=== PATIENT | female | born 1950 | race Caucasian/White ===

== ENCOUNTER 2016-09-08 21:16 | Inpatient (IN) | payer BC ==
--- NOTE | ~2016-09-08 | CN ---
Consultation Report [facility] [address] [place]. [address] NAME: UMANG MORRISON : 54 STATUS : ADM Eloise PAT#: [id number] AGE: 65 ADM/REG DATE : 09/08/16 MR#: [id number] REPORT SERV DATE: 09/09/16 DICTATED BY: MAT ROSS DATE: 09/08/16 REPORT STATUS : Draft TRANSCRIBED BY: MODL DATE: 09/08/16 CONSULTATION DATE OF CONSULTATION: 09/08/2016 EMERGENCY PHYSICIAN: Dr. Duvall. HISTORY OF PRESENT ILLNESS: She is a 65-year-old female, who had a sudden onset of severe pain on the head on the left side around 6 o'clock, which lasted for about two to three minutes and then it went away. Then, she started having dizziness, and she feels little dizzy and off balance. But no weakness was reported, but she had some tingling and numbness in the left hand, and that is not that bad now, and she can still walk and do things, but she still has little off balance and feels like she is drunk a little. She does not have any problem with the speech. No weakness was reported. No blurred vision. No double vision was reported. PAST MEDICAL HISTORY: Includes cancer of the lung, resected on the left upper lobe. She also has back pain, and she is under stress because her only five months ago and she is under lot of stress and she takes fluoxetine. MEDICATION: She is on oxycodone, oxymorphone, progesterone, Flexeril, and fluoxetine. ALLERGIES: CODEINE. SOCIAL HISTORY: She is . Denies any smoking, alcohol abuse, or drug abuse. FAMILY HISTORY: There is a history of coronary artery disease and stroke in the family. PHYSICAL EXAMINATION: VITAL SIGNS: Her blood pressure is 184/97, temperature is 99.4, pulse rate is 87, respiratory rate is 20, and O2 saturation 98. GENERAL: She is awake, alert, oriented in time, space, and person. Her NIH stroke scale was 0/42. She follows one-step commands appropriately. Tongue is in midline. Palate elevates symmetrically and uvula in center. There is no bruit neck. There is soft precordial murmur. HEENT: Extraocular movements are normally seen. Facial sensation is preserved. Facial muscle contraction is normal. Range of movement of neck is full. There is no tenderness on palpation of the paracervical spinal muscles. NEUROLOGIC: Motor examination showed her to have 5/5 strength in all four extremities. Her deep tendon reflexes are 1+ and symmetrical and plantars are downgoing bilaterally. Sensory examination is intact to light touch and pinprick on both upper and lower Consultation Report [facility] [id number] [place]. [address] NAME: UMANG MORRISON : 54 STATUS : ADM Eloise PAT#: [id number] AGE: 65 ADM/REG DATE : 09/08/16 MR#: [id number] REPORT SERV DATE: 09/09/16 DICTATED BY: MAT ROSS DATE: 09/08/16 REPORT STATUS : Draft TRANSCRIBED BY: PARISH DATE: 09/08/16 extremities. Vibration is still preserved in both upper and lower extremities. Coordination examination showed her to have no dysmetria on ceotrj-ex-iqkj or nbys-ta-kxdz on either side. She can walk on her toes and heels and she can do a tandem gait, but little hoppy on tandem gait only. Romberg sign showed her to have no swing. IMAGING: CT scan of the brain did not show any abnormality. LABS: Her WBC count is 9.4, hemoglobin is 14.9, hematocrit is 43.9, platelet count is 336. Her sodium is 141, potassium is 4.1, chloride is 104, bicarb 27, BUN is 17, creatinine is 0.98. Platelet count is 88. Her PT is 14.1. INR is 1.2. Her alkaline phosphatase is 133, ALT is 21, AST is 14. ASSESSMENT: 1. Transient ischemic attack versus small stroke involving the brachium conjunctivum on the left side, possibly even a cerebellar stroke. Time onset is around 6 o'clock and she is out of the window and with a history of lung cancer. She may not be a candidate for t-PA. PLAN: Plan is to get a MRI of the brain, arrange for her to have a carotid ultrasound, echocardiogram of the heart, a Holter monitor, and arrange for Physical Therapy to evaluate her and treat her and if necessary give her balance training and start her on IV fluids 60 mL per hour, normal saline for now, and start her on aspirin a day and Lipitor 40 mg once a day. Ask Neuro hospitalist to see her in the morning. PERRY/PARISH Mat Ross M.D. / [id number] CC: Ankit Melo M.D.
--- NOTE | ~2016-09-08 | DS ---
Discharge Summary [facility] [address] [facility]. [address] NAME: UMANG MORRISON : 54 STATUS : DIS Eloise PAT#: [id number] AGE: 65 ADM/REG DATE : 09/08/16 MR#: [id number] REPORT SERV DATE: 09/11/16 DICTATED BY: SETH SUTHERLAND DATE: 09/10/16 REPORT STATUS : Draft TRANSCRIBED BY: MODGi DATE: 09/10/16 ADMISSION DATE: 09/08/2016 DISCHARGE DATE: 09/10/2016 PROCEDURES DONE: 1. 09/08/2016, CT of the head without contrast, mild to moderate deep white matter chronic microvascular ischemic changes, mild ectasia of the basal artery, greater than 5 mm caliber near the tip of the basilar artery. Probable developmental variant, poorly pneumatized right mastoid air cells. No acute intracranial pathology identified. 2. 09/08/2016, chest x-ray: Small basal atelectasis. Otherwise, no acute cardiopulmonary abnormality identified. 3. 09/10/2015, ultrasound carotid, bilateral category normal. 4. MRA of the head, there is motion artifact distorting the carotid siphon, however, there are intracranial vessels, there was no evidence of the inner proximal vessel cut off or aneurysm. 5. MRA of the neck, tortuosity of internal carotid arteries. There is no significant carotid bifurcation stenosis present. 6. 09/09/2016, MRI of the brain, extensive amount of old deep white matter ischemic changes present in both hemispheres, right side mastoiditis, no acute infarction seen. 7. 09/09/2016, 2D echo: Normal left ventricular size and systolic function. EF of 55%. Mild left ventricular diastolic dysfunction, normal right ventricular size and systolic function. No significant valvular disease. CONSULT: Neurology. REASON FOR ADMISSION: Dizziness and unsteady gait. HISTORY OF HOSPITAL STAY: A 65-year-old, white female with past medical history of cerebrovascular accident; history of lung CA, status post left upper lobectomy; hypertension; not being treated, presenting with dizziness and unsteady gait, unknown duration. The patient was admitted for further evaluation of her dizziness and unsteady gait, Neurology was consulted for further evaluation and treatment. CT of the head initially seen was negative. This was followed up with a MRI of the head. This was also negative. The patient also had MRA of the head and neck which shows no stenosis. There were no identifiable features that would result in the patient's dizziness and unsteady gait. The patient also was presenting with a headache. Neurology started the patient on thiamine which have improved the patient's dizziness. There was also some other tangential complaints that the patient is having. The patient was also complaining of snoring while sleeping as well as back pain. Outpatient sleep study has been ordered as well as MRI of L- spine with followup as an outpatient. Otherwise, the patient's dizziness and unsteady gait might be due to the patient's headache. There was a complaint also of patient having restless leg at night. This was resolved with Requip 0.5 mg p.o. at bedtime. DISPOSITION: The patient is feeling fine. No complaints. Activities tolerated. Discharge Summary [address] [address] NAME: UMANG MORRISON : 54 STATUS : DIS Eloise PAT#: [id number] AGE: 65 ADM/REG DATE : 09/08/16 MR#: [id number] REPORT SERV DATE: 09/11/16 DICTATED BY: SETH SUTHERLAND DATE: 09/10/16 REPORT STATUS : Draft TRANSCRIBED BY: PARISH DATE: 09/10/16 DIET: Cardiac. INSTRUCTIONS UPON DISCHARGE: The patient is to follow up with her primary care within one to two weeks' time. The patient to follow up with Neurology within one to two weeks' time. MEDICATION UPON DISCHARGE: 1. Aspirin 325 mg p.o. daily. 2. Ibuprofen 4 mg p.o. t.i.d. p.r.n. for pain. 3. Estradiol 1 mg p.o. daily. 4. Prozac 60 mg p.o. daily. 5. Requip 0.5 mg p.o. at bedtime. 6. Thiamine 100 mg p.o. daily. 7. Nature-Throid mg p.o. daily. 8. Oxycodone 10 mg p.o. t.i.d. 9. Opana Extended release 5 mg p.o. at bedtime. 10.Flexeril 5 mg p.o. t.i.d. p.r.n. 11.Progesterone 200 mg p.o. daily. 12.Allergy eye drops 2 drops ophthalmic daily p.r.n. 13.Albuterol two puffs p.r.n. DIAGNOSIS UPON DISCHARGE: 1. Dizziness and unsteady gait. 2. Questionable headaches. 3. Headaches. 4. Hypertension. 5. History of lung cancer, status post left upper lobectomy. CLARK/PARISH Seth Sutherland MD / [id number] CC: MD Ankit Beard M.D.
--- NOTE | ~2016-09-08 | HP ---
History And Physical [facility] [address] [facility] [place]. [address] NAME: UMANG MORRISON : 54 STATUS : ADM Eloise PAT#: [id number] AGE: 65 ADM/REG DATE : 09/08/16 MR#: [id number] REPORT SERV DATE: 09/09/16 DICTATED BY: MICHAEL CABA DATE: 09/09/16 REPORT STATUS : Draft TRANSCRIBED BY: MODGi DATE: 09/09/16 DATE OF ADMISSION: 09/08/2016 CHIEF COMPLAINT: Dizziness, unsteady gait, and pain in the left side of her head. HISTORY OF PRESENT ILLNESS: This is a 65-year-old female with a history of CVA in the past, history of lung cancer status post left upper lobectomy, hypertension which she is not being treated, who presents to the emergency room at [facility] with the above-mentioned complaint. History is obtained from the patient, and reviewing data available on the [facility] as well. According to the patient, she had been in her usual state of health until about after lunch today, when she was not doing anything in particular, walking from one room to another in her home when she suddenly experienced severe pain inside her head, mostly on the left side. She says the pain, although she felt it on the left it was inside her. It lasted about 15- 20 seconds and just went away. At that time, she also felt some tingling in her left upper extremity and possibly some weakness. She was fine after it went away and decided to go arrange some things in her home and sat down and was doing something. She noticed that she felt like she was drunk, felt very unsteady, and when she got up to walk she almost felt like she was drunk and could not keep her balance. Her had about five months ago and she is still unhappy about way things happened, but is slowly getting used to the fact and addressing her grief. She did not fall down or pass out. She had no chest pains or any other symptoms. She called a friend of hers and they discussed the symptoms, it was decided to come to the emergency room to be evaluated. In the emergency room, initial workup including CT scan of the brain did not reveal any acute changes. There was evidence of old CVA. Her EKG was unremarkable, but symptoms did continue especially the unsteadiness on her feet, and gait abnormality. The ER physician had called Neurology on-call who actually saw the patient in the ER, reviewed all the tests and decided that this was not an appropriate candidate for thrombolysis and wanted the Hospitalist Service to admit her for further evaluation and treatment. At the time of my evaluation, she had gait abnormality as mentioned above and uncontrolled hypertension. She did not have any other neurological problems at this time. She denied any chest pain, palpitations, or orthopnea. She had no cough, hemoptysis, night sweats, or weight loss. She had no falls or loss of consciousness recently. No history of recent fevers, chills, dysuria. She did not have any nausea, vomiting, diarrhea, diaphoresis. No history of recent hematemesis, hematochezia, or hematuria. No other history of recent travel or exposures. She also says she had not taken her blood pressure medications for some unknown reason for about three to four months now. PAST MEDICAL HISTORY: Significant for hypertension, history of CVA in 2015, although she said she had not actually been to a hospital. She has history of lung cancer, status post left upper lobectomy. SOCIAL HISTORY: She has never smoked, does not drink, or use recreational drugs. She is a History And Physical [address] [place]. [address] NAME: UMANG MORRISON : 54 STATUS : ADM Eloise PAT#: [id number] AGE: 65 ADM/REG DATE : 09/08/16 MR#: [id number] REPORT SERV DATE: 09/09/16 DICTATED BY: MICHAEL CABA DATE: 09/09/16 REPORT STATUS : Draft TRANSCRIBED BY: PARISH DATE: 09/09/16 vegetarian. 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 After her stroke the last time she has had some difficulty with her right arm and is slowly getting back to playing the violin. FAMILY HISTORY: Noncontributory. MEDICATIONS: Her medications at home were reviewed by me in the chart today and reordered by me. REVIEW OF SYSTEMS: As in history of present illness. All other systems were reviewed in detail and are quite unremarkable. PHYSICAL EXAMINATION: GENERAL: This is a pleasant 65-year-old, not in any acute distress. HEENT: Her head is atraumatic and normocephalic. She is alert, awake, oriented to time, place, and person. Her pupils are equal, reacting to light and accommodating. External ocular muscles are intact. Membranes are moist and pink. Sclerae are nonicteric. NECK: Supple with no jugular venous distention, lymphadenopathy, or thyromegaly. LUNGS: Clear to auscultation with no wheezes, rubs, or crackles. HEART: Heart sounds were regular with no murmurs, rubs, or gallops. ABDOMEN: Soft and nontender. Bowel sounds are present. EXTREMITIES: No cyanosis, clubbing, or edema. NEUROLOGIC: Grossly intact. At the time of my exam, she did have some steadiness in gait; otherwise, unremarkable. VITAL SIGNS: Her temperature was 99.4 upon arrival, heart rate 56, respirations 18 a minute, and blood pressure upon arrival was 184/97. At the time of my exam I did a recheck and it was 170/104. Oxygen saturations were 100% on 2 L via nasal cannula. LABORATORY DATA: Reviewed on the [facility] system showed normal CMP with a blood glucose of 88. Her troponin today was 0.02 and CBC was essentially within normal limits. Her prothrombin time was 14.1 with an INR of 1.1 today. Urinalysis was not done today. Films of the CT scan of her brain were reviewed by me on the PACS today and interpreted by me. Per my interpretation, there is no acute intracranial pathology. There are remarkable changes from old CVA. Please see Radiology report for the details. A 12-lead EKG done in the emergency room was also reviewed and interpreted by me. There is normal sinus rhythm at a rate of 72 per minute without any acute changes. IMPRESSION: 1. Dizziness. 2. Gait abnormality. 3. Transient ischemic attack versus cerebrovascular accident with cerebellar signs. 4. Uncontrolled hypertension. History And Physical [address] [address] NAME: UMANG MORRISON : 54 STATUS : ADM Eloise PAT#: [id number] AGE: 65 ADM/REG DATE : 09/08/16 MR#: [id number] REPORT SERV DATE: 09/09/16 DICTATED BY: MICHAEL CABA DATE: 09/09/16 REPORT STATUS : Draft TRANSCRIBED BY: PARISH DATE: 09/09/16 5. History of lung cancer, status post left upper lobectomy. 6. History of cerebrovascular accident in the past. PLAN: We will admit Mrs. Morrison to the Hospitalist Service with telemetry for a 24-hour observation period. We will follow non-tPA stroke orders to get and consult Neuro hospitalist to see her in the morning. The patient was actually seen by neurologist, Dr. Mat Ross in the ER, who had a discussion with me as well. I have also noted his orders in the chart. We will go with aspirin and statins per protocol check her MRI and MRA of her head and echocardiogram as well. We will have Physical Therapy to evaluate her in the morning and offer recommendations and treatments. She will be placed on unfractionated heparin for DVT prophylaxis while here and the proton pump inhibitor for neuro prophylaxis. I have discussed the above plans and the hypertension as well with the patient. Her questions were answered, and she is agreeable to the above recommendations. Hospitalist Service will be following her during her stay here. /PARISH Michael Caba M.D. / [id number] CC: Denis Jackson MD
[2016-09-08 21:54] LABS: BASOPHILS 0.7 %; BASOPHILS ABSOLUTE 0.07 10/3/uL (0.0-0.16); EOSINOPHILS 4.2 %; EOSINOPHILS ABSOLUTE 0.39 10/3/uL (0.0-0.53); ER CBC TAT 0 Hrs 11 Mins; HEMATOCRIT 43.9 % (36.0-48.0); HEMOGLOBIN 14.9 g/dL (12.0-16.0); IMMATURE GRANULOCYTES 0.2 %; IMMATURE GRANULOCYTES ABSOLUTE 0.02 10/3/uL (0.0-0.11); LYMPHOCYTES 30.8 %; LYMPHOCYTES ABSOLUTE 2.88 10/3/uL (0.67-4.30); MANUAL DIFF NO %; MEAN CORPUS HGB CONC 33.9 g/dL (32.0-36.0); MEAN CORPUSCULAR VOLUME 91.5 fL (80-100); MONOCYTES 9.1 %; MONOCYTES ABSOLUTE 0.85 10/3/uL (0.21-1.20); NEUTROPHILS ABSOLUTE 5.14 10/3/uL (2.02-8.40); PLATELET COUNT 336 10/3/uL (150-400); RBC DISTRIBUTION WIDTH 13.1 % (12.0-16.0); WHITE BLOOD CELLS 9.4 10/3/uL (4.5-10.5)
[2016-09-08 21:57] LABS: INTERNATIONAL NORMAL RATI 1.1 UNITS (-); PARTIAL THROMBO TIME 32.9 SEC (22.5-37.2); PROTIME (NOT ORD) 14.1 SEC (12.0-14.5)
[2016-09-08 22:08] LABS: A/G RATIO 1.3 (0.7-1.9); ALBUMIN 4.1 G/DL (3.5-5.0); ALKALINE PHOSPHATASE 133 U/L (45-117); BUN (BLOOD UREA NITROGEN) 17 MG/DL (6-23); CALCIUM, SERUM 8.7 MG/DL (8.5-10.4); CHLORIDE, SERUM 104 MMOL/L (96-112); CO2 (CARBON DIOXIDE) 27 MMOL/L (24-34); CREATININE 0.98 MG/DL (0.55-1.02); GFR AFRICAN AMERICAN 71 ML/MIN (>=60); GFR NON AFRICAN AMERICAN 61 ML/MIN (>=60); GLOBULIN 3.2 G/DL (2.5-4.1); GLUCOSE, SERUM 88 MG/DL (60-99); POTASSIUM, SERUM 4.1 MMOL/L (3.5-5.3); SGOT(AST) 14 U/L (5-40); SGPT(ALT) 21 U/L (5-65); SODIUM, SERUM 141 MMOL/L (135-148); TOTAL PROTEIN 7.3 G/DL (6.0-8.5); TROPONIN I <0.02 NG/ML (<0.05)
[2016-09-08] MEDS ORDERED: PROZAC PO (23:38)
[2016-09-08] MEDS ORDERED: NATURE-THROI16.25 MG PO (23:44)
[2016-09-08] MEDS ORDERED: FLEXERIL5 MG PO (23:45)
[2016-09-08] MEDS ORDERED: PROMETRIUM200 MG PO (23:45)
[2016-09-08] MEDS ORDERED: ESTRACE1 MG PO (23:45)
[2016-09-08] MEDS ORDERED: OXYCOD PO (23:46)
[2016-09-08] MEDS ORDERED: OPANA ER5 MG PO (23:49)
[2016-09-08] MEDS ORDERED: MOTRIN IB200 MG PO (23:57)
[2016-09-08] MEDS ORDERED: [UNRECOGNIZED DRUG - REMARK] OPH (23:59)
[2016-09-09] MEDS ORDERED: PROVHFA INH
[2016-09-09] MEDS ORDERED: MAINTENANCE INHALER INH (00:02)
[2016-09-09 02:09] LABS: FOLATE 32.1 NG/ML (>5.2)
[2016-09-09 08:01] LABS: BASOPHILS 0.6 %; BASOPHILS ABSOLUTE 0.06 10/3/uL (0.0-0.16); EOSINOPHILS 5.3 %; EOSINOPHILS ABSOLUTE 0.54 10/3/uL (0.0-0.53); HEMOGLOBIN 13.2 g/dL (12.0-16.0); IMMATURE GRANULOCYTES 0.3 %; IMMATURE GRANULOCYTES ABSOLUTE 0.03 10/3/uL (0.0-0.11); LYMPHOCYTES 28.6 %; LYMPHOCYTES ABSOLUTE 2.91 10/3/uL (0.67-4.30); MEAN CORPUS HGB CONC 33.7 g/dL (32.0-36.0); MEAN CORPUSCULAR HEMOGLOB 30.3 pg (26.0-34.0); MEAN CORPUSCULAR VOLUME 90.1 fL (80-100); MEAN PLATELET VOLUME 8.9 fL (9.2-13.0); MONOCYTES 10.6 %; MONOCYTES ABSOLUTE 1.08 10/3/uL (0.21-1.20); NEUTROPHILS 54.6 %; NEUTROPHILS ABSOLUTE 5.57 10/3/uL (2.02-8.40); PLATELET COUNT 312 10/3/uL (150-400); RBC DISTRIBUTION WIDTH 13.3 % (12.0-16.0); RED CELL COUNT 4.35 10/6/uL (4.0-5.6); WHITE BLOOD CELLS 10.2 10/3/uL (4.5-10.5)
[2016-09-09 08:02] LABS: HEMATOCRIT 39.2 % (36.0-48.0); MANUAL DIFF NO %
[2016-09-09 08:09] LABS: INTERNATIONAL NORMAL RATI 1.1 UNITS (-); PARTIAL THROMBO TIME 34.8 SEC (22.5-37.2); PROTIME (NOT ORD) 13.7 SEC (12.0-14.5)
[2016-09-09 08:37] LABS: ASCORBIC ACID (UR NOT ORDER) NEG (NEG); BILIRUBIN, URINE NEGATIVE (NEG); KETONE, URINE NEGATIVE (NEG); LEUKOCYTE ESTERASE(NOT OR NEG (NEG); WBC (NOT ORDERED) (RFLEX) 1 (0-5)
[2016-09-09 08:53] LABS: BUN (BLOOD UREA NITROGEN) 18 MG/DL (6-23); CALCIUM, SERUM 8.3 MG/DL (8.5-10.4); CHLORIDE, SERUM 113 MMOL/L (96-112); CHOL/HDL RATIO(NOT ORDER) 3.7 (0-5); CHOLESTEROL 227 MG/DL (< 200); CO2 (CARBON DIOXIDE) 27 MMOL/L (24-34); CPK 121 U/L (0-200); CREATININE 0.94 MG/DL (0.55-1.02); GFR AFRICAN AMERICAN 75 ML/MIN (>=60); GFR NON AFRICAN AMERICAN 65 ML/MIN (>=60); GLUCOSE, SERUM 98 MG/DL (60-99); HDL CHOLESTEROL 62 MG/DL (> 49); LDL CHOLESTEROL 137 MG/DL (< 130); NON-HDL CHOLESTEROL 165 MG/DL (< 160); PHOSPHORUS, SERUM 3.5 MG/DL (2.5-4.5); POTASSIUM, SERUM 4.3 MMOL/L (3.5-5.3); SODIUM, SERUM 145 MMOL/L (135-148); TRIGLYCERIDE 142 MG/DL (< 150); TROPONIN I <0.02 NG/ML (<0.05)
[2016-09-09 08:56] LABS: CK-MB 1.2 NG/ML; FOLATE 33.7 NG/ML (>5.2)
[2016-09-10 06:07] LABS: BASOPHILS 0.4 %; BASOPHILS ABSOLUTE 0.03 10/3/uL (0.0-0.16); EOSINOPHILS 7.3 %; EOSINOPHILS ABSOLUTE 0.52 10/3/uL (0.0-0.53); HEMATOCRIT 41.6 % (36.0-48.0); HEMOGLOBIN 13.7 g/dL (12.0-16.0); IMMATURE GRANULOCYTES 0.3 %; IMMATURE GRANULOCYTES ABSOLUTE 0.02 10/3/uL (0.0-0.11); LYMPHOCYTES 32.6 %; LYMPHOCYTES ABSOLUTE 2.33 10/3/uL (0.67-4.30); MANUAL DIFF NO %; MEAN CORPUS HGB CONC 32.9 g/dL (32.0-36.0); MEAN CORPUSCULAR HEMOGLOB 30.9 pg (26.0-34.0); MEAN CORPUSCULAR VOLUME 93.7 fL (80-100); MEAN PLATELET VOLUME 9.1 fL (9.2-13.0); MONOCYTES 10.2 %; MONOCYTES ABSOLUTE 0.73 10/3/uL (0.21-1.20); NEUTROPHILS 49.2 %; NEUTROPHILS ABSOLUTE 3.51 10/3/uL (2.02-8.40); PLATELET COUNT 331 10/3/uL (150-400); RBC DISTRIBUTION WIDTH 13.1 % (12.0-16.0); RED CELL COUNT 4.44 10/6/uL (4.0-5.6); WHITE BLOOD CELLS 7.1 10/3/uL (4.5-10.5)
[2016-09-10 06:21] LABS: CHLORIDE, SERUM 108 MMOL/L (96-112); CO2 (CARBON DIOXIDE) 25 MMOL/L (24-34); CREATININE 0.78 MG/DL (0.55-1.02); GFR AFRICAN AMERICAN 94 ML/MIN (>=60); GFR NON AFRICAN AMERICAN 81 ML/MIN (>=60); GLUCOSE, SERUM 85 MG/DL (60-99); PHOSPHORUS, SERUM 3.8 MG/DL (2.5-4.5); POTASSIUM, SERUM 4.3 MMOL/L (3.5-5.3); SGOT(AST) 16 U/L (5-40); SGPT(ALT) 23 U/L (5-65); SODIUM, SERUM 141 MMOL/L (135-148); TOTAL BILIRUBIN 0.8 MG/DL (0-1.2); TOTAL PROTEIN 6.3 G/DL (6.0-8.5)
[2016-09-10 06:22] LABS: ALBUMIN 3.2 G/DL (3.5-5.0); ALKALINE PHOSPHATASE 111 U/L (45-117); BUN (BLOOD UREA NITROGEN) 12 MG/DL (6-23); C-REACTIVE PROTEIN 8.6 MG/L (<8.0); GLOBULIN 3.1 G/DL (2.5-4.1)
[2016-09-10 07:04] LABS: SED RATE 10 MM/HR (0-20)
[2016-09-10] MEDS ORDERED: ASA5GR PO (17:48)
[2016-09-10] MEDS ORDERED: REQUIP5 PO (17:49)
[2016-09-10] MEDS ORDERED: B1100 PO (17:50)
== END 2016-09-10 19:05 | disposition home or self-care (01) | DRG 93 ==
LOC: ER 21:16 → 2SO 23:57
PROVIDERS: Emergency Medicine; Hospitalist; Internal Medicine Pulmonary Disease
DX: R26.81 Unsteadiness on feet (principal); I10 Essential (primary) hypertension; R51 Headache; R42 Dizziness and giddiness; Z90.2 Acquired absence of lung [part of]; Z85.118 Personal history of other malignant neoplasm of bronchus and lung; Z88.5 Allergy status to narcotic agent; Z82.49 Family history of ischemic heart disease and other diseases of the circulatory system; Z82.3 Family history of stroke; Z86.73 Personal history of transient ischemic attack (TIA), and cerebral infarction without residual deficits
CPT/HCPCS: 70450; 70544; 70548; 70551-52; 71020; 80048; 80053; 80061; 81001; 82550; 82553; 82607; 82746; 83036; 83735; 84100; 84443; 84484; 85025; 85610; 85652; 85730; 86140; 87040; 93005; 93306; 93880; 94640; 99285; A9270-GY; A9577